=== PATIENT | female | born 1955 | race Caucasian/White ===

== ENCOUNTER → 2017-06-24 | Day surgery (SDC) | payer BC ==
[~2017-06-24] MED LIST: FENTANYL PF 100MCG/2ML VIAL IV ONE; LIDOCAINE 2% MDV (20MG/ML) 20ML VIAL IV ONE; PROPOFOL 10 MG/ML VIAL IV ONE
--- NOTE | 2017-06-24 13:30 | Operative Note ---
DATE OF SURGERY: 06/24/2017 OPERATION: ESOPHAGOGASTRODUODENOSCOPY. INDICATION: Previously noted antral gastric ulcerations. The patient had been taking naproxen. She returns at this time for reevaluation to assess for healing. ANESTHESIA: Intravenous sedation was administered by the department of anesthesiology and included Diprivan titrated to effect. PROCEDURE: Following informed consent from this alert individual, including a discussion of the risks and benefits of the procedure and an opportunity for the patient to ask questions, the patient was in the left lateral decubitus position. The Olympus [id number] video endoscope was inserted into the esophagus without resistance. The proximal esophagus had a normal appearance with normal folds and distensibility. The mid and distal esophagus likewise was free from changes. The stomach was entered and found to be unremarkable except for re-epithelialization noted at the gastric antrum on the posterior wall at the site of previous ulcers. The pylorus itself was symmetrical and patent. The duodenal bulb, sweep and descending duodenum were examined in a serial fashion and found to be normal. The endoscope was then withdrawn back into the body of the stomach. Retroflexion accomplished following air insufflation failed to demonstrate any abnormalities. The endoscope was then straightened. Again, the ulcers noted in the antrum had completely healed. The instrument was then withdrawn through a normal esophagus and removed from the patient. The patient tolerated the procedure well and was returned to the recovery area in stable condition. IMPRESSION: 1. Healed gastric antral ulcerations. 2. Otherwise normal endoscopy. RECOMMENDATION: The patient will reduce her Protonix to 1 tablet daily. She will follow up with Dr. Mayer. As always, thank you for allowing me to participate in the care of your patient. CC: AYLA MAYER MD, FACP [facility]
--- NOTE | 2017-06-24 13:30 | Operative Note ---
DATE OF SURGERY: 06/24/2017 OPERATION: COLONOSCOPY to the cecum with cold snare polypectomy x1 and cold biopsy forceps polypectomy x2. INDICATION: History of adenomatous polyps in the past. She had her last colonoscopy in 2010. ANESTHESIA: Intravenous sedation was administered by the department of anesthesiology and included Diprivan titrated to effect. PROCEDURE: Following informed consent from this alert individual including a discussion of the risks and benefits of the procedure and an opportunity for the patient to ask questions, the patient was in the left lateral decubitus position. A digital rectal examination was performed. No abnormalities were noted. Following this, the Olympus [id number] video colonoscope was inserted into the rectum without resistance. The rectal mucosa had a normal appearance with normal folds and distensibility. The colonoscope was advanced up through the colon to the level of the cecum without much difficulty. Throughout the bowel the mucosa appeared normal, the folds were normal, and the bowel was fairly well distensible. The cecum was defined by noting the appendiceal orifice and ileocecal valve. The colon preparation was good. From the base of the cecum, the colonoscope was then withdrawn. No changes were noted until the descending colon was reached. There was a flat sessile 6 mm polyp noted which was removed with cold snare polypectomy and suctioned through the endoscope into a collection trap. There were 2 more diminutive polyps distally in the descending colon measuring 3 mm in size endoscopically appearing like hyperplastic polyps. These were removed with cold biopsy forceps. The endoscope was then drawn back into a normal rectum. Retroflexion accomplished following air insufflation failed to demonstrate any additional changes. The endoscope was straightened and removed. The patient tolerated the procedure well and was returned to the recovery area in stable condition. IMPRESSION: 1. A 6 mm sessile polyp in the descending colon removed with cold snare polypectomy. 2. Two diminutive 3 mm hyperplastic-appearing polyps noted in the descending colon removed with biopsy forceps. RECOMMENDATIONS: Further recommendations will be forthcoming pending results of pathology obtained today. Followup will also be with Dr. Ayla Mayer. As always, thank you for allowing me to participate in the care of your patient. CC: AYLA MAYER MD, FACP [facility]
== END | disposition home or self-care (01) ==
LOC: HOP 09:02
PROVIDERS: ATTEND Internal Medicine Gastroenterology
DX: Z87.19 Personal history of other diseases of the digestive system (principal); M79.7 Fibromyalgia; M81.0 Age-related osteoporosis without current pathological fracture
CPT/HCPCS: 43235; 00813; J3010

== ENCOUNTER 2017-12-10 19:01 | Emergency (ER) | payer BC ==
--- NOTE | 2017-12-10 19:25 | Emergency Department Record ---
History of Present Illness - General Chief Complaint: Wound, check Stated Complaint: WOUND INFECTION? Time Seen by Provider: 12/10/17 19:22 Source: Patient Mode of arrival: Ambulatory Limitations: No limitations - History of Present Illness Initial Comments: 62 yo female presents to ED for evaluation of a previously repaired laceration to the left hand 10 days ago. Patient reports that she sustained a laceration to the dorsum of the left hand 10 days ago resulting from a dog nail, reports that her wound is more painful and swollen today. Patient denies new redness or wound drainage, denies fevers, chills, nausea, or vomiting. Patient has been wrapping the wound with Koban. Patient was prescribed Keflex 2 days ago. MD Complaint: Wound re-check Onset/Timin -: Days(s) Initial Visit For: Other Returns Today for: Wound recheck Symptoms Since Prior Visit: Worsening pain Associated Symptoms: None - Related Data Previous Rx's Medication Instructions Recorded Oxycodone HCl/Acetaminophen 1 tab PO TID #10 tablet 06/25/15 [Oxycodone/Acetaminophen 5mg/325mg] Allergies Allergy/AdvReac Type Severity Reaction Status Date / Time povidone-iodine Allergy SWELLING Verified 04/20/17 12:41 [From Betadine] (GENERAL) silver sulfadiazine Allergy BLISTERS Verified 06/12/17 12:09 soap [From Betadine] Allergy SWELLING Verified 04/20/17 12:41 (GENERAL) Review of Systems Constitutional: Denies: Chills, Fever, Malaise, Night sweats Eyes: Denies: Eye discharge, Eye pain ENT: Denies: Congestion, Ear pain, Epistaxis Respiratory: Denies: Cough, Dyspnea Cardiovascular: Denies: Chest pain, Dyspnea on exertion Endocrine: Denies: Fatigue, Heat or cold intolerance Gastrointestinal: Denies: Abdominal pain, Nausea, Vomiting Genitourinary: Denies: Incontinence, Retention Musculoskeletal: Denies: Arthralgia, Back pain Skin: Denies: Bruising, Change in color Neurological: Denies: Abnormal gait, Confusion, Headache, Seizure Psychiatric: Denies: Anxiety Hematological/Lymphatic: Denies: Anemia, Blood Clots Past Medical History - SOCIAL HISTORY Smoking Status: Current every day smoker - RESPIRATORY Hx Respiratory Disorders: No - CARDIOVASCULAR Hx Edema: Yes (abd.) Hx Irregular Heartbeat: Yes - NEURO Hx Neuro Disorders: No - GI Hx GI Disorders: Yes Hx of Polyps: Yes - Hx Genitourinary Disorders: Yes - ENDOCRINE Hx Endocrine Disorders: No - MUSCULOSKELETAL Hx Musculoskeletal Disorders: Yes Hx Arthritis: Yes Comment:: sciatica issues - PSYCH Hx Psych Problems: Yes Hx Anxiety: Yes - HEMATOLOGY/ONCOLOGY Hx Hematology/Oncology Disorders: Yes Hx Bruising: Yes Hx Cancer: Yes (R breast) Hx Radiation Therapy: Yes Family Medical History *Cancer Comment: Lung; intestinal Physical Exam - General General Appearance: Alert, Oriented x3, Cooperative, No acute distress Limitations: No limitations - Head Head exam: Atraumatic, Normocephalic, Normal inspection Head exam detail: negative: Abrasion, Contusion, Morataya's sign, General tenderness, Hematoma, Laceration - Eye Eye exam: Normal appearance. negative: Conjunctival injection, Periorbital swelling, Periorbital tenderness, Scleral icterus - ENT Ear exam: negative: Auricular hematoma, Auricular trauma Nasal Exam: negative: Active bleeding, Discharge, Dried blood, Foreign body Mouth exam: negative: Drooling, Laceration, Muffled voice, Tongue elevation - Neck Neck exam: Normal inspection. negative: Meningismus, Tenderness - Respiratory Respiratory exam: Normal lung sounds bilaterally. negative: Rales, Respiratory distress, Rhonchi, Stridor - Cardiovascular Cardiovascular Exam: Regular rate, Normal rhythm, Normal heart sounds - GI/Abdominal GI/Abdominal exam: Soft. negative: Rebound, Rigid, Tenderness - Rectal Rectal exam: Deferred - exam: Deferred - Extremities Extremities exam: Tenderness, Other (Healing wound to the dorsum of the left hand with sutures and steri-strips in place, no erythema, no induration, no fluctuance. No evidence for cellulitis or infection on examination.). negative : Calf tenderness, Pedal edema - Back Back exam: Denies: CVA tenderness (R), CVA tenderness (L) - Neurological Neurological exam: Alert, Normal gait, Oriented X3 - Psychiatric Psychiatric exam: Normal affect, Normal mood - Skin Skin exam: Normal color. negative: Abrasion Type of lesion: negative: abrasion Course Vital Signs 12/10/17 19:12 Temperature 98.3 F Pulse Rate [ 82 Pulse Ox Probe] Respiratory 18 Rate Blood Pressure 156/80 [Left Arm] Pulse Ox 97 - Reevaluation(s) Reevaluation #1: 12/10/17 19:29 Wound was evaluated for any signs of infection, no clinical evidence for cellulitis/abscess on examination. No lymphangitis present. Sutures are in place x 10 days. Patient does not appear to need her sutures removed at this time as there is no infection present, recommended continued plan of care with Keflex and recommended sutures out in in 4 days. Patient appears stable for discharge at this time. Disposition Disposition: Discharge Clinical Impression: Laceration of hand Qualifiers: Encounter type: initial encounter Foreign body presence: without foreign body Laterality: left Qualified Code(s): S61.412A - Laceration without foreign body of left hand, initial encounter Disposition: Home, Self-Care Condition: (2) Stable Instructions: Laceration (ED) Additional Instructions: Return to ED if your symptoms worsen or if you have any concerns. Continue Keflex as directed. Follow-up with your family doctor in 3-5 days as directed. Forms: Patient Portal Access Time of Disposition: 19:25 Quality - Quality Measures Quality Measures: N/A - Blood Pressure Screening Does Patient Have Any of the Following: No Blood Pressure Classification: Pre-Hypertensive BP Reading Systolic Measurement: 156 Diastolic Measurement: 80 Screening for High Blood Pressure: < Pre-Hypertensive BP, F/U Documented > [ G8950] Pre-Hypertensive Follow-up Interventions: Referral to alternative/primary care provider.
[2017-12-10] MEDS ORDERED: ACETAMINOPHEN 325 MG TAB PO ONE (19:33)
== END 2017-12-10 19:45 | disposition home or self-care (01) ==
LOC: ER 19:01
DX: S61.412A Laceration without foreign body of left hand, initial encounter (principal); F17.210 Nicotine dependence, cigarettes, uncomplicated
CPT/HCPCS: 99282

== ENCOUNTER 2018-09-29 14:04 | Emergency (ER) | payer BC ==
[2018-09-29] MEDS ORDERED: HYDROCODONE/APAP 5/325MG TABLET PO ONE (14:54)
[2018-09-29] MEDS ORDERED: LORAZEPAM 0.5 MG TABLET PO ONE (14:54)
[2018-09-29] MEDS ORDERED: ALPRAZOLAM 0.25 MG TABLET PO ONE (14:58)
--- NOTE | 2018-09-29 16:52 | Emergency Department Record ---
History of Present Illness - General Chief complaint: Extremity Problem Stated complaint: RT HAND DOG BITE Time Seen by Provider: 09/29/18 14:29 Source: Patient Mode of Arrival: Ambulatory Limitations: No limitations - History of Present Illness Initial comments: pts daughter's dog scratched pts hand. it was already sore from hitting something. pt is stressed since her son in law was just dxd w cancer today Complaint: Extremity pain -: Minutes(s) Location: Left, Hand Severity scale (1-10): 8 Quality: Aching Consistency: Constant Improves with: Elevation Associated Symptoms: Denies other symptoms - Related Data Previous Rx's Medication Instructions Recorded Cephalexin [Keflex] 500 mg PO TID #15 cap 09/29/18 Allergies Allergy/AdvReac Type Severity Reaction Status Date / Time povidone-iodine Allergy SWELLING Verified 09/29/18 14:25 [From Betadine] (GENERAL) silver sulfadiazine Allergy BLISTERS Verified 09/29/18 14:25 soap [From Betadine] Allergy SWELLING Verified 09/29/18 14:25 (GENERAL) NSAIDS (Non-Steroidal AdvReac had Verified 09/29/18 14:25 Anti-Inflamma bleeding ulcer-does not take them Travel Screening - Travel/Exposure Within Last 30 Days Have you traveled within the last 30 days?: No - Travel Symptoms Symptom Screening: None Review of Systems Reviewed: No additional complaints except as noted below Constitutional: Reports: As per HPI. Denies: Chills, Fever, Malaise, Night sweats, Weakness, Weight change Eyes: Reports: As per HPI. Denies: Eye discharge, Eye pain, Photophobia, Vision change ENT: Reports: As per HPI. Denies: Congestion, Dental pain, Ear pain, Epistaxis , Hearing loss, Throat pain Respiratory: Reports: As per HPI. Denies: Cough, Dyspnea, Hemoptysis, Stridor, Wheezes Cardiovascular: Reports: As per HPI. Denies: Arrhythmia, Chest pain, Dyspnea on exertion, Edema, Murmurs, Orthopnea, Palpitations, Paroxysmal nocturnal dyspnea, Rheumatic Fever, Syncope Endocrine: Reports: As per HPI. Denies: Fatigue, Heat or cold intolerance, Polydipsia, Polyuria Gastrointestinal: Reports: As per HPI. Denies: Abdominal pain, Constipation, Diarrhea, Hematemesis, Hematochezia, Melena, Nausea, Vomiting Genitourinary: Reports: As per HPI. Denies: Abnormal menses, Discharge, Dyspareunia, Dysuria, Frequency, Hematuria, Incontinence, Retention, Urgency Musculoskeletal: Reports: As per HPI. Denies: Arthralgia, Back pain, Gout, Joint swelling, Myalgia, Neck pain Skin: Reports: As per HPI. Denies: Bruising, Change in color, Change in hair/ nails, Lesions, Pruritus, Rash Neurological: Reports: As per HPI. Denies: Abnormal gait, Confusion, Headache, Numbness, Paresthesias, Seizure, Tingling, Tremors, Vertigo, Weakness Psychiatric: Reports: As per HPI. Denies: Anxiety, Auditory hallucinations, Depression, Homicidal thoughts, Suicidal thoughts, Visual hallucinations Hematological/Lymphatic: Reports: As per HPI. Denies: Anemia, Blood Clots, Easy bleeding, Easy bruising, Swollen glands Past Medical History - SOCIAL HISTORY Smoking Status: Current every day smoker Alcohol Use: Occasional Drug Use Detail:: Marijuana - RESPIRATORY Hx Respiratory Disorders: No - CARDIOVASCULAR Hx Cardio Disorders: Yes Hx Edema: Yes (abd.) Hx Irregular Heartbeat: Yes - NEURO Hx Neuro Disorders: No - GI Hx GI Disorders: Yes Hx of Polyps: Yes - Hx Genitourinary Disorders: Yes - ENDOCRINE Hx Endocrine Disorders: No - MUSCULOSKELETAL Hx Musculoskeletal Disorders: Yes Hx Arthritis: Yes Comment:: sciatica issues - PSYCH Hx Psych Problems: Yes Hx Anxiety: Yes - HEMATOLOGY/ONCOLOGY Hx Hematology/Oncology Disorders: Yes Hx Bruising: Yes Hx Cancer: Yes (R breast) Hx Radiation Therapy: Yes Family Medical History Any Significant Family History?: Yes Hx Cancer: Mother *Cancer Comment: Lung; intestinal Physical Exam - General General Appearance: Alert, Oriented x3, Cooperative, Mild distress - Head Head exam: Normal inspection - Eye Eye exam: Normal appearance, PERRL, EOMI Pupils: Normal accommodation - ENT ENT exam: Normal exam, Mucous membranes moist, Normal external ear exam, Normal orophraynx Ear exam: Normal external inspection. negative: External canal tenderness Nasal Exam: Normal inspection. negative: Discharge, Sinus tenderness Mouth exam: Normal external inspection, Tongue normal Teeth exam: Normal inspection. negative: Dental caries Throat exam: Normal inspection. negative: Tonsillar erythema, Tonsillar exudate - Neck Neck exam: Normal inspection, Full ROM. negative: Tenderness - Respiratory Respiratory exam: Normal lung sounds bilaterally. negative: Respiratory distress - Cardiovascular Cardiovascular Exam: Normal rhythm, Normal heart sounds, Tachycardia - GI/Abdominal GI/Abdominal exam: Soft, Normal bowel sounds. negative: Tenderness - Rectal Rectal exam: Deferred - exam: Deferred - Extremities Extremities exam: Normal inspection, Full ROM, Normal capillary refill. negative: Tenderness - Back Back exam: Reports: Normal inspection, Full ROM. Denies: Muscle spasm, Rash noted, Tenderness - Neurological Neurological exam: Alert, CN II-XII intact, Normal gait, Oriented X3 - Psychiatric Psychiatric exam: Anxious, Normal affect, Normal mood, Other (pt is tearful) - Skin Skin exam: Dry, Intact, Normal color, Warm Type of lesion: Laceration Distribution of rash: RUE Course Vital Signs 09/29/18 14:19 Temperature 98.8 F Pulse Rate 107 H Respiratory 20 Rate Blood Pressure 134/97 Pulse Ox 95 - Reevaluation(s) Reevaluation #1: 09/29/18 16:57 laceration closed loosely because of possibility of infection Disposition Disposition: Discharge Clinical Impression: Laceration of hand Qualifiers: Encounter type: initial encounter Foreign body presence: without foreign body Laterality: right Qualified Code(s): S61.411A - Laceration without foreign body of right hand, initial encounter Disposition: Home, Self-Care Condition: (1) Good Instructions: Laceration (ED), Care For Your Stitches (ED), Anxiety (ED) Additional Instructions: follow up with family doctor. return sooner if worse. sutures out in 10 days Prescriptions: Cephalexin [Keflex] 500 mg PO TID #15 cap Quality - Quality Measures Quality Measures: N/A - Blood Pressure Screening Does Patient Have Any of the Following: No Blood Pressure Classification: Hypertensive Reading Systolic Measurement: 134 Diastolic Measurement: 97 Screening for High Blood Pressure: < First Hypertensive BP, F/U Documented > [ G8950] First Hypertensive Follow-up Interventions: Follow-up with rescreen GT 1 day and LT 4 weeks. Laceration - Other - Time Out Informed consent:: Informed consent obtained Confirmed first & last name, , procedure, correct site?: Yes Start Date:: 09/29/18 Start Time:: 16:25 - Location Location of laceration:: Right Laceration located on:: Hand Length of laceration:: 3 Length of laceration:: cm Hand/Finger: 1 - 3 cm v shape lac - Clean and Prep Laceration cleaning method:: Cleansed Laceration cleaning agent:: Normal Saline - Local Anesthetic Lidocaine used:: 1% Lidocaine dose:: 1 mL - Procedural Detail Tissue detail:: Torn Foreign body in the wound?: No Undermining was preformed?: No Stent applied?: No Rahul applied?: No Retention suture(s) applied?: No Skin suture pattern:: Interrupted Suture material/size:: 5-0: Prolene Number of skin sutures:: 3 Neurovascular intact?: Yes - Post Procedural Detail Complications:: Yes (flap is thin and may not have revascularization)
== END 2018-09-29 17:13 | disposition home or self-care (01) ==
LOC: ER 14:04
DX: S61.411A Laceration without foreign body of right hand, initial encounter (principal); W54.8XXA Other contact with dog, initial encounter; F17.210 Nicotine dependence, cigarettes, uncomplicated
CPT/HCPCS: 12002; 99283; 99284